=== PATIENT | male | born 1945 | race American Indian/Alaskan Native ===

== ENCOUNTER 2020-01-29 12:03 | Emergency (ER) | payer MEDICARE, OTHER ==
--- NOTE | 2020-01-29 12:21 | Consultation ---
History of Present Illness History of present illness: [facility] Date of Service: 01/29/2020 11:58:16 Impression: I61.9 - Intracerebral haemorrhage, unspecified Comments/Sign-Out: Patient is a 72 year old man who presented with EMS as his heard a noise in the bathroom and when she checked on him he was having right side weakness and speech issues, and also was not walking right, he said he has no headache. And he denies any head trauma. - NSG consult STAT - BP to stay < 140/80 - No AP or AC and if he was on AC to reverse if available. Metrics: Last Known Well: 01/29/2020 11:00:00 [employer] Notification Time: 01/29/2020 11:58:16 Arrival Time: 01/29/2020 12:02:00 Stamp Time: 01/29/2020 11:58:16 Time First Login Attempt: 01/29/2020 12:06:00 Video Start Time: 01/29/2020 12:06:00 Symptoms: right weakness NIHSS Start Assessment Time: 01/29/2020 12:13:45 Patient is not a candidate for Alteplase/Activase. Patient was not deemed candidate for Alteplase/Activase thrombolytics because of Current or Previous ICH. CT head was reviewed and results were: ICH Clinical Presentation is not Suggestive of Large Vessel Occlusive Disease ED Physician notified of diagnostic impression and management plan on 01/29/2020 12:18:13 Our recommendations are outlined below. Recommendations: Activate Stroke Protocol Admission/Order Set Stroke/Telemetry Floor Neuro Checks Bedside Swallow Eval DVT Prophylaxis IV Fluids, Normal Saline Head of Bed 30 Degrees Euglycemia and Avoid Hyperthermia (PRN Acetaminophen) Routine Consultation with Inhouse Neurology for Follow up Care Sign Out: Discussed with Emergency Department Provider History of Present Illness: Patient is a 74 year old Male. Patient was brought by EMS for symptoms of right weakness Patient is a 72 year old man who presented with EMS as his heard a noise in the bathroom and when she checked on him he was having right side weakness and speech issues, and also was not walking right, he said he has no headache. And he denies any head trauma. Examination: BP(184/104), Pulse(80s), Blood Glucose(92) 1A: Level of Consciousness - Alert; keenly responsive + 0 1B: Ask Month and Age - Both Questions Right + 0 1C: Blink Eyes & Squeeze Hands - Performs Both Tasks + 0 2: Test Horizontal Extraocular Movements - Normal + 0 3: Test Visual Becerril - No Visual Loss + 0 4: Test Facial Palsy (Use Grimace if Obtunded) - Normal symmetry + 0 5A: Test Left Arm Motor Drift - No Drift for 10 Seconds + 0 5B: Test Right Arm Motor Drift - No Drift for 10 Seconds + 1 6A: Test Left Leg Motor Drift - No Drift for 5 Seconds + 0 6B: Test Right Leg Motor Drift - No Drift for 5 Seconds + 0 7: Test Limb Ataxia (FNF/Heel-Diane) - No Ataxia + 0 8: Test Sensation - Normal; No sensory loss + 0 9: Test Language/Aphasia - Normal; No aphasia + 1 10: Test Dysarthria - Normal + 1 11: Test Extinction/Inattention - No abnormality + 0 NIHSS Score: 3 Pre-Morbid Modified Ranking Scale: 4 Points = Moderately severe disability; unable to walk and attend to bodily needs without assistance Patient/Family was informed the Neurology Consult would happen via TeleHealth consult by way of interactive audio and video telecommunications and consented to receiving care in this manner. Due to the immediate potential for life-threatening deterioration due to underlying acute neurologic illness, I spent 25 minutes providing critical care. This time includes time for face to face visit via telemedicine, review of medical records, imaging studies and discussion of findings with providers, the patient and/or family. Dr Tod Sigala [facility] Case [id number]
[2020-01-29] MEDS ORDERED: niCARdipine DRIP 40 MG/200 ML BAG ONE (12:23)
[2020-01-29] MEDS ORDERED: niCARdipine DRIP 40 MG/200 ML BAG IV ONE (12:27)
--- NOTE | 2020-01-29 12:34 | Emergency Department Report ---
ED Neuro Deficit HPI - General Chief Complaint: Neuro Symptoms/Deficit Stated Complaint: POSS CVA Time Seen by Provider: 01/29/20 12:06 Source: patient, family, EMS - History of Present Illness Initial Comments: Patient is 74 years old male with history of hypertension and depression. Patient brought to the emergency room via EMS for evaluation of possible stroke. Patient reported that patient went to the bathroom and all of a sudden she heard him vomiting and when she walked in she found him leaning towards the right side and having difficulty walking and very confused. Patient stated that she he started vomiting first. Stroke protocol immediately initiated and patient immediately moved to the CT for stat CT brain without contrast. Stroke teleneurology immediately consulted and patient examined by Tod Shepherd. CT brain showed intracerebral hemorrhage. I immediately consulted [facility], neurosurgery service. I discussed the patient with Dr. Higuera, she accepted the patient to be transferred to [facility] neuro ICU. -: Sudden, This morning Time: 11:00 Location: speech, right arm, right leg Presenting Symptoms: Present: Weak/Paralyzed One Side, Unable to Speak Clearly, Altered Mental Status History of same: No Place: home Quality: weak Context: sudden onset - Related Data Allergies/Adverse Reactions: Allergies Allergy/AdvReac Type Severity Reaction Status Date / Time No Known Allergies Allergy Verified 01/29/20 12:33 ED Review of Systems ROS: Stated complaint: POSS CVA Other details as noted in HPI Comment: All other systems reviewed and negative Constitutional: denies: chills, fever Respiratory: denies: cough, shortness of breath, SOB with exertion Cardiovascular: denies: chest pain, palpitations Gastrointestinal: denies: abdominal pain, nausea Musculoskeletal: denies: back pain Neurological: denies: headache, weakness ED Neuro Physical Exam - General General appearance: alert, in no apparent distress Suspected Stroke: Yes - Head Head exam: Present: atraumatic, normocephalic, normal inspection - Eye Eye exam: Present: normal appearance, PERRL - ENT ENT exam: Present: normal exam, normal orophraynx, mucous membranes moist - Neck Neck exam: Present: normal inspection, full ROM. Absent: tenderness, meningismu s - Respiratory Respiratory exam: Present: normal lung sounds bilaterally - Cardiovascular Cardiovascular Exam: Present: regular rate, normal rhythm, normal heart sounds - GI/Abdominal GI/Abdominal exam: Present: soft, normal bowel sounds. Absent: distended, tenderness, guarding, rebound, rigid, organomegaly, mass, bruit, pulsatile mass, hernia - Extremities Exam Extremities exam: Present: normal inspection, full ROM, normal capillary refill. Absent: tenderness, pedal edema, calf tenderness - Back Exam Back exam: Present: normal inspection, full ROM. Absent: CVA tenderness (R), CVA tenderness (L) - Neurological Exam Neurological exam: Present: alert, altered, CN II-XII intact - NIHSS Assessment Interval: Baseline 1a. Level of Consciousness: alert/keenly responsive 1b. LOC Questions: answers both correctly 1c. LOC Commands: performs tasks correctly 2. Best Gaze: normal 3. Visual: no visual loss 4. Facial Palsy: normal symmetrical movement 5b. Motor Arm Right: no drift 5a. Motor Arm Left: no drift 6a. Motor Leg Left: no drift 6b. Motor Leg Right: no drift 7. Limb Ataxia: absent 8. Sensory: normal 9. Best Language: mild/moderate aphasia 10. Dysarthria: mild/moderate dysarthria 11. Extinction/Inattention: no abnormality Total Score: 2 Stroke Severity: Minor Stroke - Skin Skin exam: Present: warm, intact, normal color - EKG Data -: EKG Interpreted by Ne EKG shows normal: sinus rhythm Rate: normal Interpretation: no acute changes - Radiology Data Radiology results: report reviewed - Medical Decision Making Patient is 74 years old male with history of hypertension and depression. Patient brought to the emergency room via EMS for evaluation of possible stroke. Patient reported that patient went to the bathroom and all of a sudden she heard him vomiting and when she walked in she found him leaning towards the right side and having difficulty walking and very confused. Patient stated that she he started vomiting first. Stroke protocol immediately initiated and patient immediately moved to the CT for stat CT brain without contrast. Stroke teleneurology immediately consulted and patient examined by Tod Shepherd. CT brain showed intracerebral hemorrhage. I immediately consulted [facility], neurosurgery service. I discussed the patient with Dr. Higuera, she accepted the patient to be transferred to [facility] neuro ICU. Critical Care Time: Yes Critical care time in (mins) excluding proc time.: 45 Critical care attestation.: If time is entered above; I have spent that time in minutes in the direct care of this critically ill patient, excluding procedure time. ED Disposition Clinical Impression: Acute intracerebral hemorrhage Disposition: [id number]/TX-[id number] ANOTHER TYPE HLTHCARE Is pt being admited?: No Condition: Stable Referrals: PRIMARY CARE, [Primary Care Provider] - 3-5 Days
--- NOTE | 2020-01-29 12:47 | Cat Scan Report ---
CT HEAD WITHOUT CONTRAST INDICATION / CLINICAL INFORMATION: MAIN. Code stroke. Right-sided weakness. TECHNIQUE: All CT scans at this location are performed using CT dose reduction for ALARA by means of automated e xposure control. COMPARISON: None available. FINDINGS: HEMORRHAGE: Intraparenchymal hematoma of the left basal ganglia measures 2.7 x 1.5 cm and demonstrate s interventricular extension involving bilateral ventricles. EXTRA-AXIAL SPACES: Normal in size and morphology for the patient's age. VENTRICULAR SYSTEM: Ventricular extension of hemorrhage as described above. Hemorrhage is noted exten ding into the third and fourth ventricle. CEREBRAL PARENCHYMA: Left basal ganglia intracerebral parenchymal hemorrhage as described above. No l arge territory ischemic infarction. MIDLINE SHIFT OR HERNIATION: None CEREBELLUM / BRAINSTEM: No significant abnormality. ORBITS: Normal as visualized. SOFT TISSUES of HEAD: No significant abnormality. CALVARIUM: No significant abnormality. PARANASAL SINUSES / MASTOID AIR CELLS: Normal as visualized. ADDITIONAL FINDINGS: None. IMPRESSION: 1. Intraparenchymal hemorrhage involving the left basal ganglia with intraventricular extension as de scribed above. 2. Minimal 4 mm midline shift to the right. CODE STROKE: Time of Communication (ADVANCED PRACTICE PROVIDER/CDT): 1135 Licensed Practitioner Receiving Report: Dr. Soria Signer Name: Car Mcgovern MD Signed: 01/29/2020 12:43 PM Workstation Name: [email or web address]
[2020-01-29 12:49] LABS: Creatine Kinase MB 1.9 ng/mL (0.0-4.0)
[2020-01-29 12:50] LABS: Alanine Aminotransferase 34 units/L (7-56); Albumin 4.3 g/dL (3.9-5); BUN/Creatinine Ratio 11; Blood Urea Nitrogen 14 mg/dL (9-20); Calcium 9.9 mg/dL (8.4-10.2); Hemolysis Index 4
[2020-01-29 12:57] LABS: Basophils % (Auto) 0.6 % (0.0-1.8); Bilirubin,Direct < 0.2 mg/dL (0-0.2); Eosinophils # (Auto) 0.1 K/mm3 (0.0-0.4); Eosinophils % (Auto) 1.4 % (0.0-4.3); Hematocrit 39.2 % (35.5-45.6); Hemoglobin 13.2 gm/dl (11.8-15.2); Lymphocytes # (Auto) 1.8 K/mm3 (1.2-5.4); Lymphocytes % (Auto) 26.1 % (13.4-35.0); Mean Corpuscular HGB Conc 34 % (32-34); Mean Corpuscular Volume 94 fl (84-94); Monocytes # (Auto) 0.4 K/mm3 (0.0-0.8); Monocytes % (Auto) 5.2 % (0.0-7.3); Platelet Count 223 K/mm3 (140-440); Red Blood Count 4.15 M/mm3 (3.65-5.03); Red Cell Distribution Width 12.7 % (13.2-15.2)
[2020-01-29 13:07] VITALS: BP 129/55
[2020-01-29 13:10] LABS: INR 0.96 (0.87-1.13); Partial Thromboplastin Time 26.4 Sec. (24.2-36.6); Thrombin Time 16.6 Sec. (15.1-19.6)
--- NOTE | 2020-01-29 13:27 | XRay Report ---
CHEST 1 VIEW INDICATION / CLINICAL INFORMATION: stroke. COMPARISON: None available. FINDINGS: SUPPORT DEVICES: None. HEART / MEDIASTINUM: No significant abnormality. LUNGS / PLEURA: Mild central pulmonary vascular congestion and bilateral perihilar edema. No pneumoth orax. No confluent infiltrates or pleural effusions. ADDITIONAL FINDINGS: [place]-Sachs lesion left humeral head. ACDF of the lower cervical spine. IMPRESSION: 1. Findings consistent with mild bilateral interstitial edema. 2. No confluent infiltrates are noted. Signer Name: Car Mcgovern MD Signed: 01/29/2020 1:23 PM Workstation Name: [email or web address]
== END 2020-01-29 13:41 | disposition other institution (70) ==
LOC: ED 12:03
DX: I61.9 Nontraumatic intracerebral hemorrhage, unspecified (principal); I10 Essential (primary) hypertension; F32.9 Major depressive disorder, single episode, unspecified
CPT/HCPCS: 36415; 70450; 71045; 80048; 80076; 80320; 82550; 82553; 84484; 85025; 85610; 85670; 85730; 93005; 96365; G0480